=== PATIENT | male | born 1985 | race African-American/Black ===

== ENCOUNTER 2023-06-11 13:26 | Emergency (ER) | payer OTHER ==
[2023-06-11 14:36] LABS: #Eosinphils 0.1 10x3/uL (0.0-0.5); #Monocytes 0.4 10x3/uL (0.0-1.1); #Neutrophils 2.4 10x3/uL (1.5-8.4); %Basophils 0.8 % (0.0-2.0); %Eosinophils 1.8 % (0.0-6.0); %Lymphocytes 39.4 % (18.0-47.0); %Monocytes 8.7 % (0.0-10.0); %Neutrophils 48.7 % (40.0-75.0); Hematocrit 52.5 % (38.8-50.0); Hemoglobin 16.9 g/dL (13.5-17.5); Mean Corpuscular HGB CONC 32.2 g/dL (32.0-36.0); Mean Corpuscular Hemoglobin 28.7 pg (27.0-33.0); Mean Corpuscular Volume 89.3 fl (81.2-95.1); Mean Platelet Volume 11.6 fl (7.4-10.4); Platelet Count 170 10x3/uL (150-450); RBC Distribution Width 15.6 % (11.5-14.5); Red Blood Cell (RBC) Count 5.88 10x6/uL (4.32-5.72)
[2023-06-11 14:51] LABS: ALT (SGPT) 10 U/L (8-55); AST (SGOT) 13 U/L (5-34); Albumin 4.2 g/dL (3.5-5.0); Alkaline Phosphatase 74 U/L (40-110); Anion Gap 13 mmol/L (10-20); BUN (Urea Nitrogen) 21 mg/dL (8.9-20.6); Bilirubin, Total 0.3 mg/dL (0.2-1.2); Calc. Creatinine Clearance 0 mL/min (70-130); Calcium 8.8 mg/dL (7.8-10.44); Carbon Dioxide 22 mmol/L (22-29); Chloride 109 mmol/L (98-107); Estimated GFR 70; Globulin 3.5 g/dL (2.4-3.5); Glucose 79 mg/dL (70-105); Potassium 4.3 mmol/L (3.5-5.1); Protein, Total 7.7 g/dL (6.0-8.3); Sodium 140 mmol/L (136-145)
[2023-06-11 14:57] LABS: Troponin I Less than 0.010 ng/mL (< 0.028)
== END 2023-06-11 16:48 ==
LOC: CSHERS 13:26 → EEVIPCON 13:26 → CSHERS 16:48
DX: R60.0 Localized edema (principal); I10 Essential (primary) hypertension; Z55.6 Problems related to health literacy; Z21 Asymptomatic human immunodeficiency virus [HIV] infection status
CPT/HCPCS: 36415; 71045; 80053; 84484; 85025; 93005

== ENCOUNTER 2023-08-09 12:04 | Inpatient (IN) | payer OTHER ==
[2023-08-09] MEDS ORDERED: cefTRIAXone (ROCEPHIN) 2 GM VIAL ONE (12:50)
[2023-08-09] MEDS ORDERED: Ondansetron PF 4 MG/2 ML Vial ONE (12:50)
[2023-08-09 12:53] LABS: Platelet Count 121 10x3/uL (150-450)
[2023-08-09 12:54] LABS: Hematocrit 54.9 % (38.8-50.0); Mean Corpuscular HGB CONC 32.8 g/dL (32.0-36.0); Mean Corpuscular Hemoglobin 29.1 pg (27.0-33.0); Mean Corpuscular Volume 88.8 fl (81.2-95.1); Mean Platelet Volume 12.9 fl (7.4-10.4); Red Blood Cell (RBC) Count 6.18 10x6/uL (4.32-5.72); White Blood Cell (WBC) Count 5.6 10x3/uL (3.5-10.5)
[2023-08-09 13:06] LABS: ALT (SGPT) 21 U/L (8-55); AST (SGOT) 28 U/L (5-34); Albumin 3.7 g/dL (3.5-5.0); Alkaline Phosphatase 73 U/L (40-110); Anion Gap 17 mmol/L (10-20); BUN (Urea Nitrogen) 31 mg/dL (8.9-20.6); Bilirubin, Total 0.8 mg/dL (0.2-1.2); Calc. Creatinine Clearance 0 mL/min (70-130); Calcium 9.7 mg/dL (7.8-10.44); Carbon Dioxide 19 mmol/L (22-29); Chloride 104 mmol/L (98-107); Estimated GFR 16; Globulin 4.2 g/dL (2.4-3.5); Glucose 108 mg/dL (70-105); Potassium 5.1 mmol/L (3.5-5.1); Protein, Total 7.9 g/dL (6.0-8.3); Sodium 135 mmol/L (136-145)
[2023-08-09 13:37] LABS: MDiff Complete? YES
[2023-08-09 13:42] LABS: Band 64 % (5-11); Lymphocytes 5 % (21-51); Neutrophil 31 % (42-75)
[2023-08-09 13:47] LABS: Platelet Adequacy Comment Appears Decreased; Reflex for Review?? YES
[2023-08-09 13:48] LABS: Ovalocytes SLIGHT = 2-5 cells (100X) (0-1/hpf); Polychromasia SLIGHT = 2-3 cells (100X) (0-2/hpf)
[2023-08-09] MEDS ORDERED: Acetaminophen 500 MG TAB ONE (14:02)
[2023-08-09] MEDS ORDERED: methylPREDNISolone Sod Succ/PF 125 MG/2 ML VIAL ONE (14:02)
[2023-08-09 14:55] LABS: Troponin I 0.011 ng/mL (< 0.028)
[2023-08-09 15:33] LABS: Lactic Acid 2.6 mmol/L (0.5-2.2)
[2023-08-09] MEDS ORDERED: Ondansetron ODT 4 MG TAB PO PRN (15:51)
[2023-08-09 16:34] LABS: Bilirubin Neg (Negative); Blood, Urine 25 (Negative); Clarity Clear (Clear); Glucose, Urine (Dipstick) Normal (Negative); Ketone, Urine Negative (Negative); Leukocyte Negative (Negative); Nitrite Negative (Negative); Protein, Urine (Dipstick) 30 mg/dl (Neg-Trace); Specific Gravity, Urine 1.015 (1.005-1.030); Urobilinogen Normal mg/dL (Less than 2)
[2023-08-09] MEDS: Ondansetron PF 4 MG/2 ML Vial IVP PRN (16:47)
[2023-08-09 16:49] LABS: Creatinine, Urine 146.96 mg/dL (63-166)
[2023-08-09 16:59] LABS: CAUTI Indications for Culture Fever or rigors; RBC/HPF 0-3 HPF (0-3); WBC/HPF 0-3 HPF (0-3)
[2023-08-09 17:02] LABS: Bacteria/HPF 2+ HPF (None Seen); Squamous Epithelial 0-3 HPF (0-3)
[2023-08-09 17:03] LABS: Calcium Oxalate Crystals 1+ HPF (None Seen)
[2023-08-09 17:04] LABS: Urine Culture Reflex No No
[2023-08-09 18:04] LABS: Troponin I Less than 0.010 ng/mL (< 0.028)
[2023-08-09 20:03] LABS: Actual Bicarbonate (HCO3v) 17.4 mEq/L (22-28); Analyzer IN Cardio CS ICU; Base Excess -6.3 mEq/L (-2 - +2); Calcium, Ionized (venous) 1.04 mmol/L (1.16-1.32); Chloride (VBG) 104 mmol/L (98-106); Critical Notified By: RRT; Hematocrit-VBG 51 % (42.0-52.0); Hemoglobin (Hb) 17.3 g/dL (13.2-17.3); Puncture Site Other Site; RapidComm Collect By LAB; Sodium 135 mmol/L (133-146); pH (venous) 7.373 (7.32-7.43)
[2023-08-09] MEDS ORDERED: Glucagon 1 MG/ML KIT IM PRN (20:24)
[2023-08-09 20:39] LABS: Sodium, Urine 54 mmol/L (Not Available); Urea Nitrogen, Random Urine Greater than 100 mg/dl
[2023-08-09] MEDS ORDERED: Vancomycin Dose by Levels Sliding Scale (Wt > 99) FS SCH (20:45)
[2023-08-09 20:46] LABS: Troponin I Less than 0.010 ng/mL (< 0.028)
[2023-08-09] MEDS: levETIRAcetam 500 MG TAB PO SCH (20:53)
[2023-08-09] MEDS: Cefepime 2 GM in Sodium Chloride 0.9% 100 ML IVPB SCH (20:53)
[2023-08-09] MEDS: VANCOMYCIN 2 GRAM/400 ML BAG 2 GM in Premix 1 BAG IVPB SCH (20:54)
[2023-08-09] MEDS: Sodium Chloride 0.9% 1,000 ML IV SCH (21:07)
[2023-08-09] MEDS: Dextrose 10% in Water 1,000 ML IV SCH (21:07)
[2023-08-09 22:25] LABS: Anion Gap 19 mmol/L (10-20); BUN (Urea Nitrogen) 31 mg/dL (8.9-20.6); Calc. Creatinine Clearance 49 mL/min (70-130); Calcium 8.7 mg/dL (7.8-10.44); Carbon Dioxide 16 mmol/L (22-29); Chloride 105 mmol/L (98-107); Estimated GFR 24; Glucose 71 mg/dL (70-105); Sodium 134 mmol/L (136-145)
[2023-08-09 22:53] LABS: Magnesium 1.4 mg/dL (1.6-2.6)
[2023-08-09 22:56] LABS: Hematocrit 58.5 % (38.8-50.0); Mean Corpuscular HGB CONC 32.5 g/dL (32.0-36.0); Mean Corpuscular Volume 89.3 fl (81.2-95.1); RBC Distribution Width 17.3 % (11.5-14.5); Red Blood Cell (RBC) Count 6.55 10x6/uL (4.32-5.72); White Blood Cell (WBC) Count 7.8 10x3/uL (3.5-10.5)
[2023-08-09 22:57] LABS: Platelet Count 72 10x3/uL (150-450)
[2023-08-09 23:03] LABS: MDiff Complete? YES
[2023-08-09 23:06] LABS: D-Dimer Test 12.24 mcg/mL (0.19-0.50); INR-International Normal Ratio 1.9; PTT 32.9 sec (22.0-33.0); Prothrombin Time 19.9 sec (9.5-12.1)
[2023-08-09 23:24] LABS: Band 65 % (5-11); Lymphocytes 6 % (21-51); Monocytes 8 % (0-10); Neutrophil 21 % (42-75)
[2023-08-09 23:29] LABS: Dohle Bodies SLIGHT; Large Platelets SLIGHT (None Seen); Ovalocytes SLIGHT = 2-5 cells (100X) (0-1/hpf); Platelet Adequacy Comment Appears Decreased
[2023-08-10] MEDS: Magnesium 2 GM/50 ML(in water) 2 GM in Premix 1 BAG IVPB SCH (04:39)
[2023-08-10 04:47] LABS: Hematocrit 56.4 % (38.8-50.0); Hemoglobin 18.1 g/dL (13.5-17.5); MDiff Complete? YES; Mean Corpuscular HGB CONC 32.1 g/dL (32.0-36.0); Mean Corpuscular Hemoglobin 28.7 pg (27.0-33.0); Mean Corpuscular Volume 89.5 fl (81.2-95.1); Platelet Count 66 10x3/uL (150-450); RBC Distribution Width 17.2 % (11.5-14.5); White Blood Cell (WBC) Count 7.7 10x3/uL (3.5-10.5)
[2023-08-10 04:51] LABS: ALT (SGPT) 30 U/L (8-55); AST (SGOT) 29 U/L (5-34); Albumin 3.1 g/dL (3.5-5.0); Alkaline Phosphatase 55 U/L (40-110); Anion Gap 21 mmol/L (10-20); BUN (Urea Nitrogen) 33 mg/dL (8.9-20.6); Bilirubin, Total 0.5 mg/dL (0.2-1.2); Calc. Creatinine Clearance 53 mL/min (70-130); Carbon Dioxide 17 mmol/L (22-29); Chloride 104 mmol/L (98-107); Estimated GFR 26; Globulin 4.4 g/dL (2.4-3.5); Glucose 62 mg/dL (70-105); Magnesium 1.5 mg/dL (1.6-2.6); Potassium 5.8 mmol/L (3.5-5.1); Protein, Total 7.5 g/dL (6.0-8.3); Sodium 136 mmol/L (136-145)
[2023-08-10 06:19] LABS: Band 68 % (5-11); Lymphocytes 7 % (21-51); Metamyelocyte 1 % (0-0); Monocytes 1 % (0-10); Neutrophil 23 % (42-75)
[2023-08-10 06:24] LABS: Dohle Bodies SLIGHT; Ovalocytes SLIGHT = 2-5 cells (100X) (0-1/hpf); Toxic Granulation SLIGHT; Vacuoles SLIGHT
[2023-08-10 06:25] LABS: Large Platelets SLIGHT (None Seen); Platelet Adequacy Comment Appears Decreased
[2023-08-10] MEDS: Hydrocortisone Sod Succ/PF 100 mg/2 ml Vial IVP SCH ×2 (07:21→08:48)
[2023-08-10] MEDS: Heparin 5,000 UNITS/ML VIAL SC SCH (09:40)
[2023-08-10] MEDS: Sodium Bicarb 50 mEq/50 ML VIAL IVP SCH (10:34)
[2023-08-10] MEDS: LOKELMA 10 GM PACKET PO SCH (10:34)
[2023-08-10] MEDS: Dextrose 50% Abboject 50 ML SYRINGE SLOW IVP PRN (10:56)
[2023-08-10] MEDS ORDERED: Lidocaine 1% PF 5 ML VIAL ONE (12:23)
[2023-08-10] MEDS: Sodium Chloride 0.9% 1,000 ML IV SCH ×2 (13:18→20:59)
[2023-08-10] MEDS: Albumin 25% 25 GM (100 mL) BOT IVPB SCH (13:18)
[2023-08-10] MEDS: Dextrose 10% in Water 1,000 ML IV SCH (13:19)
[2023-08-10] MEDS ORDERED: metroNIDAZOLE 500 MG in Premix 1 BAG IVPB SCH (14:00)
[2023-08-10] MEDS: Clindamycin/D5W 900 MG in Premix 1 BAG IVPB SCH (16:24)
[2023-08-10] MEDS: Loperamide HCl 2 MG CAP PO SCH (16:27)
[2023-08-10] MEDS ORDERED: Loperamide HCl 2 MG CAP PO PRN (17:00)
[2023-08-10 19:55] LABS: Anion Gap 18 mmol/L (10-20); BUN (Urea Nitrogen) 35 mg/dL (8.9-20.6); Calc. Creatinine Clearance 58 mL/min (70-130); Calcium 8.9 mg/dL (7.8-10.44); Carbon Dioxide 16 mmol/L (22-29); Chloride 107 mmol/L (98-107); Estimated GFR 31; Glucose 55 mg/dL (70-105); Potassium 4.6 mmol/L (3.5-5.1); Sodium 136 mmol/L (136-145)
[2023-08-10] MEDS: Emtricitabine/Tenofovir 200-300 MG TAB PO SCH (20:41)
[2023-08-10] MEDS: Raltegravir Potassium 400 MG TAB PO SCH (20:41)
[2023-08-10] MEDS: Aripiprazole 10 MG TAB PO SCH (20:41)
[2023-08-10] MEDS ORDERED: Non-Formulary Medication 1 EACH (Dolutegravir Sodium [Tivicay] 50 MG Tablet) PO SCH (21:00)
[2023-08-10 22:33] LABS: Vancomycin, Trough 10.1 ug/mL
[2023-08-10] MEDS: Vancomycin 1.5 GRAM/300 ML BAG 1.5 GM in Premix 1 BAG IVPB SCH (23:07)
[2023-08-10 23:14] LABS: Lactic Acid 2.4 mmol/L (0.5-2.2)
[2023-08-11 05:55] LABS: Hematocrit 44.4 % (38.8-50.0); Hemoglobin 13.8 g/dL (13.5-17.5); Mean Corpuscular HGB CONC 31.1 g/dL (32.0-36.0); Mean Corpuscular Volume 93.3 fl (81.2-95.1); RBC Distribution Width 16.4 % (11.5-14.5); Red Blood Cell (RBC) Count 4.76 10x6/uL (4.32-5.72); White Blood Cell (WBC) Count 7.9 10x3/uL (3.5-10.5)
[2023-08-11 06:34] LABS: Lymphocytes 9 % (21-51); MDiff Complete? YES; Manual Diff?? YES; Monocytes 7 % (0-10)
[2023-08-11 06:35] LABS: Neutrophil 84 % (42-75); Platelet Adequacy Comment Platelets Decreased; RBC Morph Comment Within Normal Limits
[2023-08-11 06:38] LABS: Mean Platelet Volume 13.2 fl (7.4-10.4); Platelet Count 90 10x3/uL (150-450)
[2023-08-11] MEDS: Citalopram 20 MG TAB PO SCH (07:32)
[2023-08-11 08:00] LABS: Vancomycin, Random 20.8 ug/mL (See Comment)
[2023-08-11 08:02] LABS: ALT (SGPT) 14 U/L (8-55); AST (SGOT) 12 U/L (5-34); Albumin 3.6 g/dL (3.5-5.0); Alkaline Phosphatase 55 U/L (40-110); Anion Gap 12 mmol/L (10-20); BUN (Urea Nitrogen) 28 mg/dL (8.9-20.6); Bilirubin, Total 0.6 mg/dL (0.2-1.2); Calc. Creatinine Clearance 75 mL/min (70-130); Calcium 8.9 mg/dL (7.8-10.44); Carbon Dioxide 18 mmol/L (22-29); Chloride 111 mmol/L (98-107); Estimated GFR 42; Globulin 3.5 g/dL (2.4-3.5); Glucose 91 mg/dL (70-105); Magnesium 1.9 mg/dL (1.6-2.6); Protein, Total 7.1 g/dL (6.0-8.3); Sodium 137 mmol/L (136-145)
[2023-08-11 08:57] LABS: D-Dimer Test 3.18 mcg/mL (0.19-0.50); PTT 33.9 sec (22.0-33.0); Prothrombin Time 11.1 sec (9.5-12.1)
[2023-08-11] MEDS ORDERED: Albumin 25% 25 GM (100 mL) BOT IVPB SCH (09:15)
[2023-08-11] MEDS: Dextrose 5 % And 0.9 % NaCl 1,000 ML IV SCH (10:20)
[2023-08-11] MEDS: Albumin 25% 25 GM (100 mL) BOT IVPB SCH (10:21)
[2023-08-11] MEDS: Sodium Bicarb 50 mEq/50 ML VIAL IVP SCH (12:32)
[2023-08-11 17:40] LABS: Anion Gap 12 mmol/L (10-20); BUN (Urea Nitrogen) 24 mg/dL (8.9-20.6); Calc. Creatinine Clearance 90 mL/min (70-130); Calcium 8.8 mg/dL (7.8-10.44); Carbon Dioxide 19 mmol/L (22-29); Chloride 112 mmol/L (98-107); Estimated GFR 52; Glucose 111 mg/dL (70-105); Sodium 139 mmol/L (136-145)
[2023-08-11] MEDS: Dextrose 5%-Lactated Ringers 1,000 ML IV SCH (21:07)
[2023-08-11] MEDS: Acetaminophen 325 MG TAB PO PRN (21:42)
[2023-08-12 03:38] LABS: Hematocrit 38.5 % (38.8-50.0); Hemoglobin 12.7 g/dL (13.5-17.5); Mean Corpuscular Hemoglobin 28.9 pg (27.0-33.0); Mean Corpuscular Volume 87.5 fl (81.2-95.1); Mean Platelet Volume 11.8 fl (7.4-10.4); RBC Distribution Width 16.1 % (11.5-14.5); White Blood Cell (WBC) Count 9.1 10x3/uL (3.5-10.5)
[2023-08-12 03:46] LABS: ALT (SGPT) 12 U/L (8-55); AST (SGOT) 11 U/L (5-34); Albumin 3.5 g/dL (3.5-5.0); Alkaline Phosphatase 48 U/L (40-110); Anion Gap 12 mmol/L (10-20); BUN (Urea Nitrogen) 20 mg/dL (8.9-20.6); Bilirubin, Total 0.5 mg/dL (0.2-1.2); Calc. Creatinine Clearance 101 mL/min (70-130); Calcium 8.8 mg/dL (7.8-10.44); Carbon Dioxide 19 mmol/L (22-29); Chloride 114 mmol/L (98-107); Estimated GFR 59; Globulin 3.1 g/dL (2.4-3.5); Glucose 103 mg/dL (70-105); Magnesium 2.2 mg/dL (1.6-2.6); Potassium 4.2 mmol/L (3.5-5.1); Protein, Total 6.6 g/dL (6.0-8.3); Sodium 141 mmol/L (136-145)
[2023-08-12 04:26] LABS: MDiff Complete? YES; Manual Diff?? YES; RBC Morph Comment Within Normal Limits
[2023-08-12 04:27] LABS: Platelet Adequacy Comment Platelets Decreased
[2023-08-12 04:28] LABS: Band 4 % (5-11); Eosinophils 1 % (0-10); Lymphocytes 9 % (21-51); Monocytes 4 % (0-10); Neutrophil 80 % (42-75); Reactive Lymphocytes 2 % (0-10)
[2023-08-12 04:29] LABS: Platelet Count 85 10x3/uL (150-450)
[2023-08-12] MEDS: Hydrocortisone Sod Succ/PF 100 mg/2 ml Vial IVP SCH (08:51)
[2023-08-12] MEDS: Dextrose 5%-Lactated Ringers 1,000 ML IV SCH ×2 (08:52→12:27)
[2023-08-12] MEDS ORDERED: cefTRIAXone\\ROCEPHIN 2 GM in Sodium Chloride 0.9% 100 ML IVPB SCH (10:30)
[2023-08-12] MEDS: Sodium Bicarbonate Tab 325 MG TAB PO SCH (15:29)
[2023-08-12] MEDS ORDERED: Vancomycin 1.5 GRAM/300 ML BAG 1.5 GM in Premix 1 BAG IVPB SCH (17:00)
[2023-08-12] MEDS: Albumin 25% 25 GM (100 mL) BOT IVPB SCH (18:11)
[2023-08-12] MEDS: Ipratropium/Albuterol 3 ML NEB NEB PRN (19:30)
[2023-08-12] MEDS: cefTRIAXone\\ROCEPHIN 2 GM in Sodium Chloride 0.9% 100 ML IVPB SCH (20:56)
[2023-08-12] MEDS: traMADol HCl 50 MG TAB PO PRN (21:12)
[2023-08-13 04:25] LABS: Hematocrit 37.4 % (38.8-50.0); Hemoglobin 12.3 g/dL (13.5-17.5); Mean Corpuscular HGB CONC 32.9 g/dL (32.0-36.0); Mean Corpuscular Hemoglobin 28.7 pg (27.0-33.0); Mean Corpuscular Volume 87.2 fl (81.2-95.1); Mean Platelet Volume 12.7 fl (7.4-10.4); Platelet Count 88 10x3/uL (150-450); RBC Distribution Width 16.5 % (11.5-14.5); Red Blood Cell (RBC) Count 4.29 10x6/uL (4.32-5.72); White Blood Cell (WBC) Count 7.6 10x3/uL (3.5-10.5)
[2023-08-13 04:30] LABS: Anion Gap 13 mmol/L (10-20); BUN (Urea Nitrogen) 18 mg/dL (8.9-20.6); Calc. Creatinine Clearance 119 mL/min (70-130); Calcium 8.8 mg/dL (7.8-10.44); Carbon Dioxide 20 mmol/L (22-29); Chloride 111 mmol/L (98-107); Estimated GFR 70; Glucose 89 mg/dL (70-105); Magnesium 2.1 mg/dL (1.6-2.6); Potassium 3.7 mmol/L (3.5-5.1); Sodium 140 mmol/L (136-145)
[2023-08-13 05:06] LABS: MDiff Complete? YES; Manual Diff?? YES
[2023-08-13 05:07] LABS: Platelet Adequacy Comment Platelets Decreased; RBC Morph Comment Within Normal Limits
[2023-08-13 05:08] LABS: Eosinophils 2 % (0-10); Lymphocytes 15 % (21-51); Monocytes 12 % (0-10); Neutrophil 65 % (42-75); Reactive Lymphocytes 6 % (0-10)
[2023-08-13] MEDS: Hydrocortisone Sod Succ/PF 100 mg/2 ml Vial IVP SCH (08:10)
[2023-08-13] MEDS: Dextrose 5%-Lactated Ringers 1,000 ML IV SCH ×2 (08:55→12:55)
[2023-08-13] MEDS: guaiFENesin/DM ER PO SCH ×2 (09:50→10:03)
[2023-08-13 13:37] LABS: %CD4 (Helper/Inducer) 25.6 % (30.8-58.5); Absolute CD4 230 /uL (359-1519); Lymphocytes/Gated Cell Count 0.9 x10E3/uL (0.7-3.1); Total Lymphocyte 10 % (Not Estab.); WBC Total Count 9.2 x10E3/uL (3.4-10.8)
[2023-08-14 03:30] LABS: Hematocrit 38.1 % (38.8-50.0); Hemoglobin 12.6 g/dL (13.5-17.5); Manual Diff?? YES; Mean Corpuscular HGB CONC 33.1 g/dL (32.0-36.0); Mean Corpuscular Hemoglobin 28.6 pg (27.0-33.0); Mean Corpuscular Volume 86.6 fl (81.2-95.1); Mean Platelet Volume 12.2 fl (7.4-10.4); Platelet Adequacy Comment Platelets Decreased; Platelet Count 90 10x3/uL (150-450); RBC Distribution Width 16.6 % (11.5-14.5); White Blood Cell (WBC) Count 8.4 10x3/uL (3.5-10.5)
[2023-08-14 03:44] LABS: ALT (SGPT) 8 U/L (8-55); AST (SGOT) 13 U/L (5-34); Albumin 3.6 g/dL (3.5-5.0); Alkaline Phosphatase 46 U/L (40-110); Anion Gap 13 mmol/L (10-20); BUN (Urea Nitrogen) 18 mg/dL (8.9-20.6); Bilirubin, Total 0.4 mg/dL (0.2-1.2); Calc. Creatinine Clearance 129 mL/min (70-130); Calcium 9.1 mg/dL (7.8-10.44); Carbon Dioxide 22 mmol/L (22-29); Chloride 109 mmol/L (98-107); Estimated GFR 78; Globulin 3.2 g/dL (2.4-3.5); Glucose 93 mg/dL (70-105); Magnesium 2.1 mg/dL (1.6-2.6); Potassium 3.7 mmol/L (3.5-5.1); Protein, Total 6.8 g/dL (6.0-8.3); Sodium 140 mmol/L (136-145)
[2023-08-14 03:56] LABS: Band 2 % (5-11); Eosinophils 1 % (0-10); Lymphocytes 17 % (21-51); MDiff Complete? YES; Monocytes 26 % (0-10); Neutrophil 49 % (42-75); Reactive Lymphocytes 5 % (0-10)
[2023-08-14 03:57] LABS: RBC Morph Comment Within Normal Limits
[2023-08-15 04:01] LABS: ALT (SGPT) 10 U/L (8-55); AST (SGOT) 17 U/L (5-34); Albumin 3.4 g/dL (3.5-5.0); Alkaline Phosphatase 52 U/L (40-110); Anion Gap 14 mmol/L (10-20); BUN (Urea Nitrogen) 18 mg/dL (8.9-20.6); Bilirubin, Total 0.4 mg/dL (0.2-1.2); Calc. Creatinine Clearance 145 mL/min (70-130); Carbon Dioxide 21 mmol/L (22-29); Chloride 108 mmol/L (98-107); Estimated GFR 89; Globulin 3.6 g/dL (2.4-3.5); Glucose 82 mg/dL (70-105); Magnesium 2.1 mg/dL (1.6-2.6); Sodium 139 mmol/L (136-145)
[2023-08-15 04:18] LABS: Band 5 % (5-11); Lymphocytes 26 % (21-51); Monocytes 9 % (0-10); Neutrophil 55 % (42-75); Reactive Lymphocytes 5 % (0-10)
[2023-08-15 04:20] LABS: MDiff Complete? YES; Manual Diff?? YES
[2023-08-15 04:21] LABS: Platelet Adequacy Comment Platelets Decreased; RBC Morph Comment Within Normal Limits
[2023-08-15 04:22] LABS: Hematocrit 38.7 % (38.8-50.0); Hemoglobin 12.9 g/dL (13.5-17.5); Mean Corpuscular HGB CONC 33.3 g/dL (32.0-36.0); Mean Corpuscular Hemoglobin 28.7 pg (27.0-33.0); Mean Corpuscular Volume 86.2 fl (81.2-95.1); Mean Platelet Volume 11.9 fl (7.4-10.4); Platelet Count 117 10x3/uL (150-450); RBC Distribution Width 16.6 % (11.5-14.5); Red Blood Cell (RBC) Count 4.49 10x6/uL (4.32-5.72); White Blood Cell (WBC) Count 10.4 10x3/uL (3.5-10.5)
[2023-08-15 05:06] VITALS: BMI 36.1
[2023-08-15] MEDS ORDERED: hydrALAZINE 20 MG/ML VIAL SLOW IVP PRN (09:09)
[2023-08-15] MEDS: Furosemide 40 MG (4 mL) VIAL SLOW IVP SCH (09:10)
[2023-08-15] MEDS: Amlodipine 5 MG TAB PO SCH (09:50)
[2023-08-15 10:14] LABS: LOG10 HIV-1 RNA 2.362 (.)
[2023-08-16 05:10] LABS: Anion Gap 15 mmol/L (10-20); BUN (Urea Nitrogen) 20 mg/dL (8.9-20.6); Calc. Creatinine Clearance 140 mL/min (70-130); Calcium 8.7 mg/dL (7.8-10.44); Carbon Dioxide 24 mmol/L (22-29); Chloride 103 mmol/L (98-107); Estimated GFR 94; Glucose 83 mg/dL (70-105); Sodium 137 mmol/L (136-145)
[2023-08-16 05:16] LABS: Hematocrit 41.2 % (38.8-50.0); Hemoglobin 13.4 g/dL (13.5-17.5); Mean Corpuscular HGB CONC 32.5 g/dL (32.0-36.0); Mean Corpuscular Hemoglobin 28.1 pg (27.0-33.0); Mean Corpuscular Volume 86.4 fl (81.2-95.1); RBC Distribution Width 16.6 % (11.5-14.5); Red Blood Cell (RBC) Count 4.77 10x6/uL (4.32-5.72); White Blood Cell (WBC) Count 10.4 10x3/uL (3.5-10.5)
[2023-08-16 05:34] LABS: MDiff Complete? YES
[2023-08-16 05:55] LABS: Platelet Count 96 10x3/uL (150-450)
[2023-08-16 06:48] LABS: Anisocytosis SLIGHT = 6-15 cells (100X) (0-5/hpf); Band 14 % (5-11); Eosinophils 2 % (0-10); Lymphocytes 21 % (21-51); Monocytes 4 % (0-10); Neutrophil 56 % (42-75); Reactive Lymphocytes 3 % (0-10)
[2023-08-16 06:49] LABS: Microcytosis SLIGHT = 6-15 cells (100X) (0-5/hpf); Ovalocytes SLIGHT = 2-5 cells (100X) (0-1/hpf); Platelet Adequacy Comment Appears Decreased; Polychromasia SLIGHT = 2-3 cells (100X) (0-2/hpf)
[2023-08-16 07:28] LABS: Potassium 4.5 mmol/L (3.5-5.1)
[2023-08-16] MEDS: Hydrochlorothiazide 25 MG TAB PO SCH (08:32)
[2023-08-16] MEDS: Furosemide 20 MG (2 mL) VIAL SLOW IVP SCH (09:18)
[2023-08-16 10:02] VITALS: BMI 37.9
[2023-08-16 14:03] LABS: CRP,High Sensitivity (Inhouse) 7.24 mg/dL (< or = 0.5)
[2023-08-16] MEDS: cefTRIAXone\\ROCEPHIN 2 GM in Sodium Chloride 0.9% 100 ML IVPB SCH (15:25)
[2023-08-16 20:26] VITALS: BP 133/72; TEMP 99.1
== END 2023-08-16 19:50 | DRG 871 ==
LOC: CSHERS 12:04 → EEVIPCON 12:04 → CSHIMCU 13:37
PROVIDERS: ADMIT Internal Medicine; ATTEND Internal Medicine
PROC: 3E03329 Introduction of Other Anti-infective into Peripheral Vein, Percutaneous Approach (ICD-10-PCS; 2023-08-09)
PROC: 03JY3ZZ Inspection of Upper Artery, Percutaneous Approach (ICD-10-PCS; principal; 2023-08-10)
PROC: 30233J1 Transfusion of Nonautologous Serum Albumin into Peripheral Vein, Percutaneous Approach (ICD-10-PCS; 2023-08-10)
PROC: 02HV33Z Insertion of Infusion Device into Superior Vena Cava, Percutaneous Approach (ICD-10-PCS; 2023-08-10)
PROC: B548ZZA Ultrasonography of Superior Vena Cava, Guidance (ICD-10-PCS; 2023-08-10)
DX: A40.8 Other streptococcal sepsis (principal); D65 Disseminated intravascular coagulation [defibrination syndrome]; N17.9 Acute kidney failure, unspecified; L03.116 Cellulitis of left lower limb; E87.20 Acidosis, unspecified; A04.72 Enterocolitis due to Clostridium difficile, not specified as recurrent; L03.115 Cellulitis of right lower limb; G40.909 Epilepsy, unspecified, not intractable, without status epilepticus; R65.20 Severe sepsis without septic shock; N18.30 Chronic kidney disease, stage 3 unspecified; I12.9 Hypertensive chronic kidney disease with stage 1 through stage 4 chronic kidney disease, or unspecified chronic kidney disease; I95.9 Hypotension, unspecified; E16.2 Hypoglycemia, unspecified; Z79.899 Other long term (current) drug therapy; Z53.9 Procedure and treatment not carried out, unspecified reason; E87.5 Hyperkalemia; R73.9 Hyperglycemia, unspecified; E66.9 Obesity, unspecified; E83.51 Hypocalcemia; E88.09 Other disorders of plasma-protein metabolism, not elsewhere classified; Z68.37 Body mass index [BMI] 37.0-37.9, adult
CPT/HCPCS: 36415; 36416; 36569; 71045; 74176; 80048; 80053; 80202; 81001; 82533; 82570; 82805; 83605; 83735; 83880; 84145; 84300; 84484; 84540; 85025; 85049; 85060; 85300; 85362; 85384; 85610; 85730; 86140; 86141; 86361; 87040; 87077; 87086; 87149; 87186; 87324; 87449; 87536; 93005; 93970; 94640; 94760; 96374; 96375; C1751; J0692; J0696; J1720; J1940; J2405; J2930; J3370; J3475; J3490; J7042; J7050; J7620; J7999; P9047